=== PATIENT | male | born 1985 | race Caucasian/White ===

== ENCOUNTER → 2017-04-14 | Outpatient (CLI) | payer BC ==
--- NOTE | 2017-04-14 14:27 | Diagnostic Imaging Report ---
EXAM: Thyroid Ultrasound INDICATION: \S\HYPERTHYROIDISM COMPARISON: None TECHNIQUE: Transverse and sagittal images were obtained of the thyroid gland. FINDINGS: Thyroid gland: Size: Right lobe 4.7 x 1.9 x 2 cm, Normal in size Left lobe 4.9 x 1.8 x 2 cm, Normal in size Isthmus 0.4 cm, Normal in size Appearance: Mildly heterogeneous echotexture without increased vascularity Masses/Nodules: None Parathyroid: No focal parathyroid masses. IMPRESSION: Mildly heterogeneous thyroid gland without nodules. Signed by: Dr. Bud Tolbert MD on 04/14/2017 2:24 PM
== END ==
LOC: US 13:42
PROVIDERS: ATTEND Internal Medicine
DX: E05.90 Thyrotoxicosis, unspecified without thyrotoxic crisis or storm (principal)
CPT/HCPCS: 76536